=== PATIENT | male | born 1990 | race Caucasian/White ===

== ENCOUNTER 2016-09-17 21:28 | Emergency (ER) | payer OTHER ==
[~2016-09-17] VITALS: Ht 167.6 cm; Wt 142.9 kg
[~2016-09-17 21:28] MED LIST: ADDERALL 30 MG; ADDERALL20 MG PO; AMBIEN CR12.5 MG PO; DESYREL 150 MG150 MG PO; GEODON60 MG PO; HYDROXYZINE PAM50 MG PO; LAMICTAL100 MG PO; LAMOTRIGINE100 MG PO; NOHOMEMEDS; PREDNISONE20 MG PO; VENTOLIN HFA18 GM IH
[2016-09-17 22:03] LABS: HEMATOCRIT 45.3 % (38.0-50.0); MCH 29.7 PG (29.0-34.0); MCHC 35.3 G/DL (30.0-36.0); MEAN PLAT.VOLUME 9.4 uM^3 (9.0-12.4); PLATELET COUNT 320 K/uL (156-360); RBC DIS.WIDTH-CV 13.2 % (11.8-14.6); RBC DIS.WIDTH-SD 40.3 % (39-53); RED BLOOD COUNT 5.39 M/uL (4.00-5.50); WHITE BLOOD COUNT 16.7 K/uL (4.1-10.2)
[2016-09-17 22:11] LABS: CHLORIDE 105 mEq/L (99-109); POTASSIUM 3.5 mEq/L (3.7-5.4); SODIUM 139 mEq/L (136-147)
[2016-09-17 22:12] LABS: GLUCOSE 99 mg/dL (70-99)
[2016-09-17 22:14] LABS: ANION GAP 12 MEQ/L (2-14)
[2016-09-17 22:16] LABS: GFR ESTIMATE (CALCULATED) > 59 mL/min/
[2016-09-17 22:17] LABS: UREA NITROGEN (BUN) 9 mg/dL (9-23)
[2016-09-17 23:06] LABS: TOTAL BILIRUBIN 0.6 mg/dL (0.0-1.0)
[2016-09-17 23:07] LABS: ALKALINE PHOSPHATASE 92 IU/L (3-129)
[2016-09-17 23:10] LABS: DIRECT BILIRUBIN 0.3 mg/dL (0.0-0.3)
[2016-09-17 23:11] LABS: LIPASE 16 U/L (1.0-51.0)
[2016-09-18 00:01] VITALS: BP 172/78
== END 2016-09-18 00:02 | disposition home or self-care (01) ==
LOC: EME 21:28 → RME 21:28
DX: K59.00 Constipation, unspecified (principal); R10.9 Unspecified abdominal pain; R05 Cough; K21.9 Gastro-esophageal reflux disease without esophagitis; G47.30 Sleep apnea, unspecified; F17.200 Nicotine dependence, unspecified, uncomplicated
CPT/HCPCS: 71020; 74020; 80048; 80076; 83690; 85027; 99281; 99284

== ENCOUNTER 2016-12-09 05:52 | Emergency (ER) | payer OTHER ==
[~2016-12-09] VITALS: Ht 172.7 cm; Wt 146.8 kg
[2016-12-09] MEDS ORDERED: GEODON80 MG PO (06:51)
[2016-12-09] MEDS ORDERED: LITHIUM CARBON300 M2 PO (06:51)
[2016-12-09] MEDS ORDERED: BUSPAR30 MG PO (06:51)
[2016-12-09] MEDS ORDERED: TEMAZEPAM30 MG PO (06:52)
[2016-12-09] MEDS ORDERED: ALPRAZOLAM0.5 MG PO (06:53)
[2016-12-09] MEDS ORDERED: CITRATE OF MAG296 ML PO (07:40)
[2016-12-09] MEDS ORDERED: PROAIR HFA8.5 GM IH (07:40)
[2016-12-09] MEDS ORDERED: PREDNISONE50 MG PO (07:40)
[2016-12-09] MEDS ORDERED: ZITHROMAX Z-PA250 MG PO (07:40)
[2016-12-09 07:52] VITALS: BP 133/76
== END 2016-12-09 07:53 | disposition home or self-care (01) ==
LOC: EME 05:52
DX: J20.9 Acute bronchitis, unspecified (principal); K59.00 Constipation, unspecified; G47.30 Sleep apnea, unspecified; F17.210 Nicotine dependence, cigarettes, uncomplicated; F31.9 Bipolar disorder, unspecified
CPT/HCPCS: 71020; 94640; 99281; 99284; J7512

== ENCOUNTER 2016-12-19 14:54 | Emergency (ER) | payer OTHER ==
[~2016-12-19] VITALS: Ht 167.6 cm; Wt 148.7 kg
[~2016-12-19 14:54] MED LIST changes: +ALPRAZOLAM0.5 MG PO; +BUSPAR30 MG PO; +CITRATE OF MAG296 ML PO; +GEODON80 MG PO; +LITHIUM CARBON300 M2 PO; +PREDNISONE50 MG PO; +PROAIR HFA8.5 GM IH; +TEMAZEPAM30 MG PO; +ZITHROMAX Z-PA250 MG PO
[2016-12-19 17:07] LABS: HEMATOCRIT 50.3 % (38.0-50.0); MCH 29.7 PG (29.0-34.0); MCHC 33.8 G/DL (30.0-36.0); MCV 87.8 FL (86-99); MEAN PLAT.VOLUME 9.6 uM^3 (9.0-12.4); PLATELET COUNT 337 K/uL (156-360); RBC DIS.WIDTH-CV 13.1 % (11.8-14.6); RED BLOOD COUNT 5.73 M/uL (4.00-5.50)
[2016-12-19 17:16] LABS: CHLORIDE 106 mEq/L (99-109); POTASSIUM 4.1 mEq/L (3.7-5.4); SODIUM 139 mEq/L (136-147)
[2016-12-19 17:18] LABS: GLUCOSE 92 mg/dL (70-99)
[2016-12-19 17:20] LABS: ANION GAP 11 MEQ/L (2-14)
[2016-12-19 17:22] LABS: D-DIMER ELISA 0.32 mg/L FEU (< 0.57); GFR ESTIMATE (CALCULATED) > 59 mL/min/; PROTHROMBIN TIME 10.1 (9.2-11.2); PTT 28.8 (25-32)
[2016-12-19 17:23] LABS: UREA NITROGEN (BUN) 10 mg/dL (9-23)
[2016-12-19] MEDS ORDERED: ZANTAC300 MG PO (19:43)
[2016-12-19] MEDS ORDERED: ZOFRAN ODT4 MG PO (19:43)
[2016-12-19 20:05] VITALS: BP 161/88
== END 2016-12-19 20:06 | disposition home or self-care (01) ==
LOC: EME 14:54
PROVIDERS: Physician Assistant
DX: R06.02 Shortness of breath (principal); G47.33 Obstructive sleep apnea (adult) (pediatric); E66.01 Morbid (severe) obesity due to excess calories; Z68.43 Body mass index [BMI] 50.0-59.9, adult; F17.200 Nicotine dependence, unspecified, uncomplicated; R10.13 Epigastric pain; K21.9 Gastro-esophageal reflux disease without esophagitis
CPT/HCPCS: 71020; 80048; 83880; 85027; 85379; 85610; 85730; 93005; 99281; 99285

== ENCOUNTER 2017-11-17 13:17 | Emergency (ER) | payer OTHER ==
[~2017-11-17] VITALS: Ht 170.2 cm; Wt 117.8 kg
[~2017-11-17 13:17] MED LIST changes: +ZANTAC300 MG PO; +ZOFRAN ODT4 MG PO
[2017-11-17 13:42] LABS: HEMATOCRIT 50.6 % (38.0-50.0); HEMOGLOBIN 17.9 G/DL (12.5-16.6); MCH 30.3 PG (29.0-34.0); MCHC 35.4 G/DL (30.0-36.0); MCV 85.8 FL (86-99); PLATELET COUNT 268 K/uL (156-360); RBC DIS.WIDTH-CV 13.1 % (11.8-14.6); WHITE BLOOD COUNT 8.5 K/uL (4.1-10.2)
[2017-11-17 13:54] LABS: CHLORIDE 107 mEq/L (99-109); POTASSIUM 3.6 mEq/L (3.7-5.4); SODIUM 142 mEq/L (136-147)
[2017-11-17 13:55] LABS: GLUCOSE 142 mg/dL (70-99)
[2017-11-17 13:58] LABS: SERUM ETHYL ALCOHOL < 10 mg/dL
[2017-11-17 13:59] LABS: AMPHETAMINE NEGATIVE (500 ng/mL); BARBITURATES NEGATIVE (200 ng/mL); BENZODIAZEPINES NEGATIVE (150 ng/mL); BUPRENORPHINE NEGATIVE (10 ng/mL); COCAINE NEGATIVE (150 ng/mL); METHADONE NEGATIVE (200 ng/mL); METHAMPHETAMINE NEGATIVE (500 ng/mL); OPIATES (MORPHINE) NEGATIVE (100 ng/mL); OXYCODONE NEGATIVE (100 ng/mL); PHENCYCLIDINE NEGATIVE (25 ng/mL); PROPOXYPHENE NEGATIVE (300 ng/mL); THC CANNABINOIDS PRESUMPTIVE POSITIVE (50 ng/mL); TRICYCLIC ANTIDEPRESSANTS NEGATIVE (300 ng/mL)
[2017-11-17 14:00] LABS: UREA NITROGEN (BUN) 8 mg/dL (9-23)
[2017-11-17 14:07] LABS: GFR ESTIMATE (CALCULATED) > 59 mL/min/ (58.99-99999)
[2017-11-17 20:30] VITALS: BP 141/88
== END 2017-11-17 20:35 ==
LOC: EME 13:17
DX: F29 Unspecified psychosis not due to a substance or known physiological condition (principal); F31.2 Bipolar disorder, current episode manic severe with psychotic features; F12.20 Cannabis dependence, uncomplicated; Z04.6 Encounter for general psychiatric examination, requested by authority; F90.2 Attention-deficit hyperactivity disorder, combined type; F17.200 Nicotine dependence, unspecified, uncomplicated
CPT/HCPCS: 80048; 84999; 85027; 90837; 99281; 99285; G0480

== ENCOUNTER 2017-12-21 10:48 | Emergency (ER) | payer OTHER ==
[~2017-12-21] VITALS: Ht 175.3 cm; Wt 130.0 kg
[2017-12-21 11:14] LABS: HEMATOCRIT 51.1 % (38.0-50.0); HEMOGLOBIN 17.8 G/DL (12.5-16.6); MCH 30.5 PG (29.0-34.0); MCHC 34.8 G/DL (30.0-36.0); MCV 87.7 FL (86-99); PLATELET COUNT 319 K/uL (156-360); RBC DIS.WIDTH-CV 13.8 % (11.8-14.6); RBC DIS.WIDTH-SD 44.3 % (39-53); RED BLOOD COUNT 5.83 M/uL (4.00-5.50); WHITE BLOOD COUNT 14.4 K/uL (4.1-10.2)
[2017-12-21 11:35] LABS: CHLORIDE 108 MEQ/L (99-109); POTASSIUM 4.2 MEQ/L (3.7-5.4); SODIUM 142 MEQ/L (136-147)
[2017-12-21 11:40] LABS: CREATININE 0.7 MG/DL (0.6-1.3); GFR ESTIMATE (CALCULATED) > 59 mL/min/ (58.99-99999); GLUCOSE 107 mg/dL (70-99); SERUM ETHYL ALCOHOL 95 mg/dL; UREA NITROGEN (BUN) 10 mg/dL (9-23)
[2017-12-21 11:41] LABS: AMPHETAMINE NEGATIVE (500 ng/mL); BARBITURATES NEGATIVE (200 ng/mL); BENZODIAZEPINES NEGATIVE (150 ng/mL); BUPRENORPHINE NEGATIVE (10 ng/mL); COCAINE NEGATIVE (150 ng/mL); METHADONE NEGATIVE (200 ng/mL); METHAMPHETAMINE NEGATIVE (500 ng/mL); OPIATES (MORPHINE) NEGATIVE (100 ng/mL); OXYCODONE NEGATIVE (100 ng/mL); PHENCYCLIDINE NEGATIVE (25 ng/mL); PROPOXYPHENE NEGATIVE (300 ng/mL); THC CANNABINOIDS PRESUMPTIVE POSITIVE (50 ng/mL); TRICYCLIC ANTIDEPRESSANTS NEGATIVE (300 ng/mL)
[2017-12-21] MEDS ORDERED: ZOLPIDEM TARTRA10 MG PO (12:19)
[2017-12-21] MEDS ORDERED: HALDOL5 MG PO (12:19)
[2017-12-21 12:25] VITALS: BP 164/87
[2017-12-22] MEDS ORDERED: LITHIUM CARBON450 MG PO (21:14)
== END 2017-12-21 12:34 | disposition home or self-care (01) ==
LOC: EME 10:48
DX: F29 Unspecified psychosis not due to a substance or known physiological condition (principal); F31.9 Bipolar disorder, unspecified; G47.00 Insomnia, unspecified; F17.200 Nicotine dependence, unspecified, uncomplicated
CPT/HCPCS: 80048; 84999; 85027; 99281; 99283; G0480

== ENCOUNTER 2017-12-22 17:00 | Emergency (ER) | payer OTHER ==
[~2017-12-22] VITALS: Ht 172.7 cm; Wt 129.0 kg
[~2017-12-22 17:00] MED LIST changes: +HALDOL5 MG PO; +ZOLPIDEM TARTRA10 MG PO
[2017-12-22 17:48] LABS: BASOPHIL (%) 0.6 % (0-1); BASOPHIL COUNT 0.1 K/uL (0-0.1); EOSINOPHIL (%) 0.1 % (0-5); HEMOGLOBIN 17.1 G/DL (12.5-16.6); IMMATURE GRANULOCYTE (%) 0.7 % (0.0-0.7); LYMPHOCYTE (%) 13.3 % (15-42); MCH 30.5 PG (29.0-34.0); MCHC 34.9 G/DL (30.0-36.0); MCV 87.3 FL (86-99); MONOCYTE (%) 8.6 % (3-12); MONOCYTE COUNT 1.3 K/uL (0-0.8); NEUTROPHIL (%) 76.7 % (45-76); NEUTROPHIL COUNT 11.8 K/uL (1.8-6.4); PLATELET COUNT 299 K/uL (156-360); RBC DIS.WIDTH-CV 13.4 % (11.8-14.6); RBC DIS.WIDTH-SD 42.8 % (39-53); RED BLOOD COUNT 5.61 M/uL (4.00-5.50); WHITE BLOOD COUNT 15.3 K/uL (4.1-10.2)
[2017-12-22 18:00] LABS: ALBUMIN 4.7 g/dL (3.2-4.8); CHLORIDE 103 mEq/L (99-109); POTASSIUM 3.5 mEq/L (3.7-5.4); SODIUM 139 mEq/L (136-147)
[2017-12-22 18:02] LABS: GLUCOSE 122 mg/dL (70-99); TOTAL PROTEIN 7.4 g/dL (6.4-8.3)
[2017-12-22 18:04] LABS: TOTAL BILIRUBIN 0.8 mg/dL (0.0-1.0)
[2017-12-22 18:05] LABS: SERUM ETHYL ALCOHOL < 10 mg/dL
[2017-12-22 18:06] LABS: ALKALINE PHOSPHATASE 76 IU/L (3-129); CREATININE 0.9 mg/dL (0.6-1.3); GFR ESTIMATE (CALCULATED) > 59 mL/min/ (58.99-99999)
[2017-12-22 18:07] LABS: AST (GOT) 18 IU/L (2-34); UREA NITROGEN (BUN) 8 mg/dL (9-23)
[2017-12-22 18:09] LABS: ALT (GPT) 14 IU/L (3-49)
[2017-12-22 18:46] LABS: AMPHETAMINE NEGATIVE (500 ng/mL); BARBITURATES NEGATIVE (200 ng/mL); BENZODIAZEPINES NEGATIVE (150 ng/mL); BUPRENORPHINE NEGATIVE (10 ng/mL); COCAINE NEGATIVE (150 ng/mL); METHADONE NEGATIVE (200 ng/mL); METHAMPHETAMINE NEGATIVE (500 ng/mL); OPIATES (MORPHINE) NEGATIVE (100 ng/mL); OXYCODONE NEGATIVE (100 ng/mL); PHENCYCLIDINE NEGATIVE (25 ng/mL); PROPOXYPHENE NEGATIVE (300 ng/mL); THC CANNABINOIDS PRESUMPTIVE POSITIVE (50 ng/mL); TRICYCLIC ANTIDEPRESSANTS NEGATIVE (300 ng/mL)
[2017-12-22] MEDS ORDERED: LITHIUM CARBON450 MG PO (21:14)
[2017-12-23 02:28] VITALS: BP 138/70
== END 2017-12-23 02:28 | disposition home or self-care (01) ==
LOC: EME 17:00
PROVIDERS: Emergency Medicine
DX: F20.9 Schizophrenia, unspecified (principal); J30.1 Allergic rhinitis due to pollen; F17.200 Nicotine dependence, unspecified, uncomplicated; Z88.8 Allergy status to other drugs, medicaments and biological substances
CPT/HCPCS: 80053; 80178; 84999; 85025; 90837; 99281; 99285; G0480

== ENCOUNTER 2017-12-27 19:34 | Emergency (ER) | payer OTHER ==
[~2017-12-27] VITALS: Ht 172.7 cm; Wt 130.0 kg
[~2017-12-27 19:34] MED LIST changes: +LITHIUM CARBON450 MG PO
[2017-12-27 21:13] VITALS: BP 127/73
== END 2017-12-27 21:14 | disposition home or self-care (01) ==
LOC: EME 19:34
DX: F14.10 Cocaine abuse, uncomplicated (principal); F20.0 Paranoid schizophrenia; F29 Unspecified psychosis not due to a substance or known physiological condition; F17.200 Nicotine dependence, unspecified, uncomplicated; Z88.8 Allergy status to other drugs, medicaments and biological substances; J30.1 Allergic rhinitis due to pollen
CPT/HCPCS: 99281; 99284

== ENCOUNTER 2017-12-30 11:14 | Emergency (ER) | payer OTHER ==
[~2017-12-30] VITALS: Ht 172.7 cm; Wt 130.0 kg
[2017-12-30 12:13] LABS: BASOPHIL (%) 0.7 % (0-1); BASOPHIL COUNT 0.1 K/uL (0-0.1); EOSINOPHIL (%) 0.2 % (0-5); HEMATOCRIT 46.2 % (38.0-50.0); HEMOGLOBIN 15.8 G/DL (12.5-16.6); IMMATURE GRANULOCYTE (%) 0.6 % (0.0-0.7); LYMPHOCYTE COUNT 1.8 K/uL (1.0-2.8); MCH 30.2 PG (29.0-34.0); MCHC 34.2 G/DL (30.0-36.0); MCV 88.3 FL (86-99); MONOCYTE (%) 9.9 % (3-12); MONOCYTE COUNT 1.1 K/uL (0-0.8); NEUTROPHIL (%) 71.6 % (45-76); NEUTROPHIL COUNT 7.7 K/uL (1.8-6.4); PLATELET COUNT 254 K/uL (156-360); RBC DIS.WIDTH-CV 13.2 % (11.8-14.6); RBC DIS.WIDTH-SD 42.9 % (39-53); RED BLOOD COUNT 5.23 M/uL (4.00-5.50); WHITE BLOOD COUNT 10.7 K/uL (4.1-10.2)
[2017-12-30 12:24] LABS: CHLORIDE 107 mEq/L (99-109); POTASSIUM 3.8 mEq/L (3.7-5.4); SODIUM 143 mEq/L (136-147)
[2017-12-30 12:25] LABS: GLUCOSE 101 mg/dL (70-99)
[2017-12-30 12:28] LABS: SERUM ETHYL ALCOHOL < 10 mg/dL
[2017-12-30 12:29] LABS: APPEARANCE CLEAR ((CLEAR)); BILIRUBIN NEGATIVE; BLOOD NEGATIVE; COLOR STRAW ((YELLOW)); GLUCOSE (STRIP) NEGATIVE; KETONES NEGATIVE; LEUKOCYTES NEGATIVE; NITRITE NEGATIVE; PROTEIN (STRIP) NEGATIVE; SPECIFIC GRAVITY 1.006 (1.000-1.030); UROBILINOGEN 0.2 MG/DL (0.2-1.0)
[2017-12-30 12:29] LABS: CREATININE 0.8 mg/dL (0.6-1.3); GFR ESTIMATE (CALCULATED) > 59 mL/min/ (58.99-99999)
[2017-12-30 12:30] LABS: UREA NITROGEN (BUN) 7 mg/dL (9-23)
[2017-12-30 12:40] LABS: AMPHETAMINE NEGATIVE (500 ng/mL); BARBITURATES NEGATIVE (200 ng/mL); BENZODIAZEPINES NEGATIVE (150 ng/mL); BUPRENORPHINE NEGATIVE (10 ng/mL); COCAINE NEGATIVE (150 ng/mL); METHADONE NEGATIVE (200 ng/mL); METHAMPHETAMINE NEGATIVE (500 ng/mL); OPIATES (MORPHINE) NEGATIVE (100 ng/mL); OXYCODONE NEGATIVE (100 ng/mL); PHENCYCLIDINE NEGATIVE (25 ng/mL); PROPOXYPHENE NEGATIVE (300 ng/mL); THC CANNABINOIDS PRESUMPTIVE POSITIVE (50 ng/mL); TRICYCLIC ANTIDEPRESSANTS NEGATIVE (300 ng/mL)
[2017-12-30 16:35] VITALS: BP 128/72
== END 2017-12-30 16:39 ==
LOC: EME 11:14
PROVIDERS: Emergency Medicine
DX: R45.851 Suicidal ideations (principal); F32.9 Major depressive disorder, single episode, unspecified; F20.9 Schizophrenia, unspecified; F17.200 Nicotine dependence, unspecified, uncomplicated; J30.1 Allergic rhinitis due to pollen; Z88.8 Allergy status to other drugs, medicaments and biological substances
CPT/HCPCS: 80048; 81003; 84999; 85025; 90837; 99281; 99284; G0480

== ENCOUNTER 2018-01-25 16:32 | Inpatient (IN) | payer OTHER ==
[~2018-01-25] VITALS: Ht 172.7 cm; Wt 123.7 kg
[2018-01-25 17:07] LABS: MCH 30.6 PG (29.0-34.0); MCHC 35.4 G/DL (30.0-36.0); MCV 86.5 FL (86-99); PLATELET COUNT 353 K/uL (156-360); RBC DIS.WIDTH-CV 13.1 % (11.8-14.6); RBC DIS.WIDTH-SD 40.9 % (39-53); RED BLOOD COUNT 5.55 M/uL (4.00-5.50); WHITE BLOOD COUNT 13.1 K/uL (4.1-10.2)
[2018-01-25 17:18] LABS: CHLORIDE 105 mEq/L (99-109); POTASSIUM 3.3 mEq/L (3.7-5.4); SODIUM 138 mEq/L (136-147)
[2018-01-25 17:20] LABS: GLUCOSE 108 mg/dL (70-99)
[2018-01-25 17:23] LABS: CREATININE 0.8 mg/dL (0.6-1.3); GFR ESTIMATE (CALCULATED) > 59 mL/min/ (58.99-99999); SERUM ETHYL ALCOHOL < 10 mg/dL
[2018-01-25 17:24] LABS: UREA NITROGEN (BUN) 8 mg/dL (9-23)
[2018-01-25 20:41] VITALS: BP 147/69
[2018-01-25 20:43] VITALS: BP 134/74
[2018-01-26 07:44] VITALS: BP 145/89
[2018-01-26 16:11] VITALS: BP 159/81
[2018-01-26 19:24] VITALS: BP 139/72
[2018-01-27 09:31] VITALS: BP 163/89
[2018-01-27 16:36] VITALS: BP 136/77
[2018-01-28 07:52] VITALS: BP 141/66
[2018-01-28 16:08] VITALS: BP 151/85
[2018-01-29 07:22] VITALS: BP 131/58
[2018-01-29 16:45] VITALS: BP 119/58
[2018-01-30 08:24] VITALS: BP 136/72
[2018-01-30 16:29] VITALS: BP 136/66
[2018-01-31 07:50] VITALS: BP 122/64
[2018-01-31 16:34] VITALS: BP 161/100
[2018-02-01 08:01] VITALS: BP 144/98
[2018-02-01 10:29] LABS: BASOPHIL (%) 0.6 % (0-1); BASOPHIL COUNT 0.1 K/uL (0-0.1); EOSINOPHIL (%) 0.4 % (0-5); HEMATOCRIT 49.9 % (38.0-50.0); HEMOGLOBIN 17.2 G/DL (12.5-16.6); IMMATURE GRANULOCYTE (%) 0.6 % (0.0-0.7); LYMPHOCYTE (%) 18.5 % (15-42); LYMPHOCYTE COUNT 1.5 K/uL (1.0-2.8); MCH 29.6 PG (29.0-34.0); MCHC 34.5 G/DL (30.0-36.0); MCV 85.7 FL (86-99); MONOCYTE (%) 11.2 % (3-12); MONOCYTE COUNT 0.9 K/uL (0-0.8); NEUTROPHIL (%) 68.7 % (45-76); NEUTROPHIL COUNT 5.6 K/uL (1.8-6.4); PLATELET COUNT 285 K/uL (156-360); RBC DIS.WIDTH-CV 12.6 % (11.8-14.6); RBC DIS.WIDTH-SD 39.4 % (39-53); RED BLOOD COUNT 5.82 M/uL (4.00-5.50); WHITE BLOOD COUNT 8.2 K/uL (4.1-10.2)
[2018-02-01 16:03] VITALS: BP 131/59
[2018-02-02 07:52] VITALS: BP 107/70
[2018-02-02 16:11] VITALS: BP 122/61
[2018-02-03 08:15] VITALS: BP 112/66
[2018-02-03 15:09] VITALS: BP 126/58
[2018-02-04 07:59] VITALS: BP 120/80
[2018-02-04 17:00] VITALS: BP 116/78
[2018-02-05 07:36] VITALS: BP 104/53
[2018-02-05 14:51] VITALS: BP 140/60
[2018-02-06 07:28] VITALS: BP 116/57
[2018-02-06 15:04] VITALS: BP 114/51
[2018-02-07 07:47] VITALS: BP 131/69
[2018-02-07 08:41] LABS: BASOPHIL (%) 1.2 % (0-1); BASOPHIL COUNT 0.1 K/uL (0-0.1); EOSINOPHIL (%) 1.4 % (0-5); EOSINOPHIL COUNT 0.1 K/uL (0-0.3); HEMATOCRIT 52.5 % (38.0-50.0); IMMATURE GRANULOCYTE (%) 0.4 % (0.0-0.7); LYMPHOCYTE (%) 41.1 % (15-42); MCH 29.8 PG (29.0-34.0); MCHC 34.3 G/DL (30.0-36.0); MCV 86.8 FL (86-99); MONOCYTE (%) 12.3 % (3-12); MONOCYTE COUNT 0.9 K/uL (0-0.8); NEUTROPHIL (%) 43.6 % (45-76); NEUTROPHIL COUNT 3.2 K/uL (1.8-6.4); PLATELET COUNT 272 K/uL (156-360); RBC DIS.WIDTH-CV 12.4 % (11.8-14.6); RBC DIS.WIDTH-SD 39.8 % (39-53); RED BLOOD COUNT 6.05 M/uL (4.00-5.50); WHITE BLOOD COUNT 7.4 K/uL (4.1-10.2)
[2018-02-07] MEDS ORDERED: DIVALPROEX SOD500 MG PO (09:38)
[2018-02-07] MEDS ORDERED: CLOZAPINE100 MG PO (09:40)
== END 2018-02-07 10:35 | disposition home or self-care (01) | DRG 885 ==
LOC: EME 16:32 → EDOF 18:12 → ENRESERV 20:13 → 1WEST 20:14
PROVIDERS: Psychiatry & Neurology Psychiatry
DX: F25.0 Schizoaffective disorder, bipolar type (principal); R45.851 Suicidal ideations; F17.200 Nicotine dependence, unspecified, uncomplicated; F12.20 Cannabis dependence, uncomplicated; E66.9 Obesity, unspecified; Z68.41 Body mass index [BMI] 40.0-44.9, adult
CPT/HCPCS: 80048; 80164; 80178; 85025; 85027; 90839; 94640; 94640 76; 97150 GO; 97165 GO; 99202; 99281; 99285; G0480; Q0177